=== PATIENT | male | born 1945 | race Caucasian/White ===

== ENCOUNTER 2019-01-18 11:18 | Observation (INO) ==
[2019-01-18 12:10] LABS: Bilirubin,Urine Negative (Negative); Blood,Urine Trace (Negative); Clarity,Urine Cloudy (Clear); Color,Urine Yellow (Yellow); Glucose,Urine (UA) 250 mg/dL (Normal); Ketones,Urine Negative (Negative); Leukocyte Esterase,Urine Large (Negative); Nitrite,Urine Negative (Negative); PH,Urine 5.5 pH Units (5.0-8.0); Protein,Urine 30 mg/dL (Neg-Trace); Specific Gravity,Urine 1.024 (1.010-1.025); Urobilinogen,Urine Normal (Normal)
[2019-01-18 12:12] LABS: Bacteria,Urine Many per hpf (None-Few); RBC,Urine 0-3 per hpf (0-3); Squamous Epithelial Cell,Urine Few per lpf (None-Few); WBC,Urine TNTC per hpf (0-3)
[2019-01-18 12:17] LABS: Basophils % 0.2 %; Eosinophils % 0.1 %; Hematocrit 46.4 % (37.5-50.1); Hemoglobin 15.3 g/dL (12.9-16.9); Immature Granulocytes % 0.3 % (0-4); Lymphocytes # 1.3 K/mcL (0.6-4.6); Lymphocytes % 10.4 %; Mean Corpuscular Hemoglobin 30.7 pg (28.0-33.3); Mean Corpuscular Volume 93.2 fL (83.0-100.0); Mean Platelet Volume 10.8 fL (9.4-12.4); Monocytes # 0.5 K/mcL (0.0-1.3); Monocytes % 3.7 %; Neutrophils # 10.8 K/mcL (1.6-8.9); Platelet Count 198 K/mcL (140-400); Red Blood Count 4.98 M/mcL (4.19-5.50); Red Cell Distribution Width 13.5 % (11.5-14.5); Segmented Neutrophils % 85.3 %; White Blood Count 12.6 K/mcL (4.3-11.1)
[2019-01-18 12:24] LABS: INR 1.1; Prothrombin Time 12.1 Seconds (9.4-12.1)
[2019-01-18 12:27] LABS: Activated Partial Thrombo Time 28.5 Seconds (26.0-36.0)
[2019-01-18 12:33] LABS: Alanine Aminotransferase 9 Units/L (7-52); Albumin 3.9 g/dL (3.5-5.7); Albumin/Globulin Ratio 1.3 (1.1-2.2); Alkaline Phosphatase 53 Units/L (34-104); Aspartate Amino Transferase 7 Units/L (13-39); BUN/Creatinine Ratio 18 (6-26); Bilirubin,Direct 0.2 mg/dL (0.0-0.2); Bilirubin,Indirect 0.5 mg/dL (0.0-1.2); Bilirubin,Total 0.7 mg/dL (0.3-1.0); Blood Urea Nitrogen 27 mg/dL (8-23); Calcium 9.5 mg/dL (8.6-10.3); Carbon Dioxide 23 mEq/L (23-29); Chloride 103 mEq/L (98-107); Glucose 225 mg/dL (70-105); Lipase 21 Units/L (11-82); Osmolality,Calculated 290 (280-300); Potassium 4.3 mEq/L (3.5-5.1); Sodium 134 mEq/L (136-145); Total Protein 6.9 g/dL (6.4-8.9); Troponin I < 0.03 ng/mL (< 0.04); eGFR For African Americans 57 (> 60); eGFR For Non-African Americans 47 (> 60)
[2019-01-18] MEDS ORDERED: *HR* HYDROmorphone (PF) 1 MG/ML SYRINGE IVP ONE (13:47)
[2019-01-18] MEDS ORDERED: Ondansetron 4 MG/2 ML VIAL IVP STA (13:47)
[2019-01-18] MEDS ORDERED: 0.9 % Sodium Chloride 1,000 ML IVC ONE (13:48)
[2019-01-18] MEDS ORDERED: Piperacillin/Tazobactam 3.375 GM in 0.9 % Sodium Chloride Mini Bag 100 ML IVPB ONE (15:36)
[2019-01-18] MEDS ORDERED: Ondansetron ODT 4 MG TAB.RAPDIS SL PRN (16:23)
[2019-01-18] MEDS ORDERED: Naloxone 0.4 MG/ML INJ IVP PRN (16:23)
[2019-01-18] MEDS ORDERED: *HR* FentaNYL (PF) 100 MCG/2 ML VIAL IVP PRN (16:25)
[2019-01-18] MEDS ORDERED: 0.9 % Sodium Chloride 1,000 ML IVC SCH (16:30)
[2019-01-18] MEDS ORDERED: *HR* OxyCODONE Immed Rel 5 MG TABLET PO PRN (17:15)
[2019-01-18] MEDS ORDERED: *HR* Promethazine 25 MG/ML VIAL IVP PRN (17:15)
[2019-01-18] MEDS ORDERED: Albuterol 2.5 MG/3 ML NEBULIZER IH ONE (17:15)
[2019-01-18] MEDS ORDERED: Ondansetron 4 MG/2 ML VIAL IVP ONE (17:15)
[2019-01-18] MEDS ORDERED: *HR* HYDROmorphone (PF) 1 MG/ML SYRINGE IVP PRN (17:15)
[2019-01-18] MEDS ORDERED: *HR* Propofol 200 MG/20 ML VIAL IVP ONE (17:23)
[2019-01-18] MEDS ORDERED: *HR* HYDROMORPHONE 2 MG/ML VIAL ONE (17:23)
[2019-01-18] MEDS ORDERED: Ipratropium/Albuterol Neb 3 ML ONE (17:25)
[2019-01-18] MEDS ORDERED: Ipratropium/Albuterol Neb 3 ML IH ONE (17:27)
[2019-01-18] MEDS ORDERED: *HR* Succinylcholine 200 MG/10 ML VIAL IVP ONE (17:35)
[2019-01-18] MEDS ORDERED: *HR* Rocuronium Bromide 50 MG/5 ML VIAL ONE ×2 (17:35→19:31)
[2019-01-18] MEDS ORDERED: Dexamethasone 4 MG/ML VIAL ONE (17:35)
[2019-01-18] MEDS ORDERED: Lidocaine -MPF 2% 2 ML VIAL ONE (17:35)
[2019-01-18] MEDS ORDERED: Isovue-300 50ML VIAL ONE (18:13)
[2019-01-18] MEDS ORDERED: *HR* PHENYLEPHRINE 1,000 MCG/10 ML SYRINGE IVP ONE ×2 (18:47→19:29)
[2019-01-18] MEDS ORDERED: Acetaminophen IV 1,000 MG/100 ML INFUS..BTL ONE (19:08)
[2019-01-18] MEDS ORDERED: *HR* Phenylephrine 10 MG/ML VIAL ONE (20:01)
[2019-01-18] MEDS ORDERED: CefOXitin 1,000 MG VIAL ONE (20:12)
[2019-01-18] MEDS ORDERED: Ondansetron 4 MG/2 ML VIAL ONE (20:53)
[2019-01-18] MEDS ORDERED: *HR* Metoprolol 5 MG/5 ML VIAL IVP PRN (22:16)
[2019-01-18] MEDS ORDERED: Insulin DETEMIR 100 UNIT/ML X5UNITS SQ SCH (22:16)
[2019-01-18] MEDS ORDERED: Morphine PCA 30 MG/ 30 ML 30 ML PCA.VIAL IVC PRN (22:16)
[2019-01-18 22:59] LABS: Basophils % 0.3 %; Hematocrit 45.1 % (37.5-50.1); Hemoglobin 14.3 g/dL (12.9-16.9); Immature Granulocytes % 0.6 % (0-4); Lymphocytes # 0.8 K/mcL (0.6-4.6); Mean Corpuscular HGB Conc 31.7 g/dL (31.6-35.5); Mean Corpuscular Hemoglobin 30.3 pg (28.0-33.3); Mean Corpuscular Volume 95.6 fL (83.0-100.0); Mean Platelet Volume 10.7 fL (9.4-12.4); Monocytes % 5.5 %; Platelet Count 177 K/mcL (140-400); Red Blood Count 4.72 M/mcL (4.19-5.50); Red Cell Distribution Width 13.8 % (11.5-14.5); Segmented Neutrophils % 86.6 %; White Blood Count 11.7 K/mcL (4.3-11.1)
[2019-01-18 23:05] LABS: Monocytes # 0.6 K/mcL (0.0-1.3); Neutrophils # 10.1 K/mcL (1.6-8.9)
[2019-01-18 23:18] LABS: Magnesium 1.5 mg/dL (1.6-2.6); Phosphorous 4.1 mg/dL (2.7-4.5)
[2019-01-18 23:24] LABS: Platelet Estimate Normal (Normal)
[2019-01-18] MEDS: 0.9 % Sodium Chloride 1,000 ML IVC SCH (23:30)
[2019-01-18] MEDS: *HR* FentaNYL (PF) 100 MCG/2 ML VIAL IVP PRN (23:30)
[2019-01-18] MEDS: Insulin DETEMIR 100 UNIT/ML X5UNITS SQ SCH (23:31)
[2019-01-18] MEDS: Piperacillin/Tazobactam 3.375 GM in 0.9 % Sodium Chloride Mini Bag 100 ML IVPB SCH (23:32)
[2019-01-19] MEDS: Insulin LISPRO 300 UNITS/3 ML VIAL SQ SCH ×6 (00:08→17:50)
[2019-01-19 00:37] LABS: Albumin 3.7 g/dL (3.5-5.7); Albumin/Globulin Ratio 1.4 (1.1-2.2); Bilirubin,Total 1.2 mg/dL (0.3-1.0); Calcium 8.8 mg/dL (8.6-10.3); Globulin 2.6 g/dL (2.4-3.5); Potassium 5.6 mEq/L (3.5-5.1); Total Protein 6.3 g/dL (6.4-8.9)
[2019-01-19] MEDS: *HR* FentaNYL (PF) 100 MCG/2 ML VIAL IVP PRN ×7 (03:26→22:45)
[2019-01-19 04:29] LABS: Basophils % 0.1 %; Hematocrit 42.7 % (37.5-50.1); Hemoglobin 13.3 g/dL (12.9-16.9); Immature Granulocytes % 0.4 % (0-4); Lymphocytes # 0.8 K/mcL (0.6-4.6); Lymphocytes % 6.9 %; Mean Corpuscular HGB Conc 31.1 g/dL (31.6-35.5); Mean Corpuscular Hemoglobin 30.3 pg (28.0-33.3); Mean Corpuscular Volume 97.3 fL (83.0-100.0); Monocytes # 0.6 K/mcL (0.0-1.3); Monocytes % 4.9 %; Platelet Count 164 K/mcL (140-400); Red Blood Count 4.39 M/mcL (4.19-5.50); Red Cell Distribution Width 13.9 % (11.5-14.5); Segmented Neutrophils % 87.7 %; White Blood Count 11.4 K/mcL (4.3-11.1)
[2019-01-19] MEDS ORDERED: D5% in Water 1,000 ML IVC PRN (04:41)
[2019-01-19] MEDS ORDERED: *HR* Dextrose 50 % in Water (Syg) 50 ML SYRINGE IVP PRN (04:41)
[2019-01-19] MEDS ORDERED: Dextrose Gel 15 GM/37.5 ML TUBE PO PRN ×2 (04:41)
[2019-01-19 04:45] LABS: Albumin 3.6 g/dL (3.5-5.7); Albumin/Globulin Ratio 1.3 (1.1-2.2); Bilirubin,Total 0.9 mg/dL (0.3-1.0); Calcium 8.8 mg/dL (8.6-10.3); Globulin 2.7 g/dL (2.4-3.5); Potassium 5.4 mEq/L (3.5-5.1); Total Protein 6.3 g/dL (6.4-8.9)
[2019-01-19 04:58] LABS: Platelet Estimate Normal (Normal)
[2019-01-19 05:04] LABS: Phosphorous 4.4 mg/dL (2.7-4.5)
[2019-01-19] MEDS: Piperacillin/Tazobactam 3.375 GM in 0.9 % Sodium Chloride Mini Bag 100 ML IVPB SCH ×2 (08:01→16:04)
[2019-01-19] MEDS: 0.9 % Sodium Chloride 1,000 ML IVC SCH ×3 (08:13→18:05)
[2019-01-19] MEDS: Lisinopril 20 MG TABLET PO SCH ×2 (08:13→20:02)
[2019-01-19] MEDS: Ondansetron ODT 4 MG TAB.RAPDIS SL PRN ×2 (10:03→19:23)
[2019-01-19 15:05] LABS: Albumin 3.5 g/dL (3.5-5.7); Albumin/Globulin Ratio 1.2 (1.1-2.2); Bilirubin,Total 0.5 mg/dL (0.3-1.0); Calcium 8.7 mg/dL (8.6-10.3); Globulin 2.9 g/dL (2.4-3.5); Total Protein 6.4 g/dL (6.4-8.9)
[2019-01-19] MEDS ORDERED: Ondansetron 4 MG/2 ML VIAL IVP ONE (16:07)
[2019-01-19] MEDS ORDERED: Insulin LISPRO 300 UNITS/3 ML VIAL SQ SCH (16:30)
[2019-01-19] MEDS ORDERED: *HR* Heparin 5,000 UNIT/ML VIAL SQ SCH (18:00)
[2019-01-19 19:18] VITALS: BP 150/71
[2019-01-19] MEDS: Insulin DETEMIR 100 UNIT/ML X5UNITS SQ SCH (20:02)
== END 2019-01-19 22:55 | disposition other institution (70) ==
LOC: 3ANU 11:18 → EMEROOARM 11:18 → 3ANU 17:07
PROVIDERS: ADMIT Surgery; ATTEND Surgery

== ENCOUNTER 2020-11-14 15:32 | Inpatient (IN) ==
[2020-11-14] MEDS ORDERED: 0.9 % Sodium Chloride 1,000 ML IVC ONE ×2 (17:58→19:23)
[2020-11-14 18:35] LABS: Basophils % 0.3 %; Eosinophils # 0.2 K/mcL (0.0-0.6); Eosinophils % 1.7 %; Hematocrit 44.8 % (37.5-50.1); Hemoglobin 13.7 g/dL (12.9-16.9); Immature Granulocytes % 0.4 % (0-4); Lymphocytes # 2.2 K/mcL (0.6-4.6); Lymphocytes % 23.7 %; Mean Corpuscular HGB Conc 30.6 g/dL (31.6-35.5); Mean Corpuscular Hemoglobin 30.4 pg (28.0-33.3); Mean Corpuscular Volume 99.6 fL (83.0-100.0); Mean Platelet Volume 11.4 fL (9.4-12.4); Monocytes # 0.9 K/mcL (0.0-1.3); Neutrophils # 5.9 K/mcL (1.6-8.9); Platelet Count 241 K/mcL (140-400); Red Cell Distribution Width 14.2 % (11.5-14.5); Segmented Neutrophils % 63.9 %; White Blood Count 9.3 K/mcL (4.3-11.1)
[2020-11-14 18:51] LABS: Alanine Aminotransferase 14 Units/L (7-52); Albumin 3.7 g/dL (3.5-5.7); Albumin/Globulin Ratio 1.1 (1.1-2.2); Alkaline Phosphatase 82 Units/L (34-104); Aspartate Amino Transferase 11 Units/L (13-39); BUN/Creatinine Ratio 20 (6-26); Bilirubin,Direct 0.1 mg/dL (0.0-0.2); Bilirubin,Indirect 0.2 mg/dL (0.0-1.0); Bilirubin,Total 0.3 mg/dL (0.3-1.0); Blood Urea Nitrogen 63 mg/dL (8-23); Calcium 8.8 mg/dL (8.6-10.3); Carbon Dioxide 11 mEq/L (23-29); Chloride 115 mEq/L (98-107); Globulin 3.4 g/dL (2.4-3.5); Glucose 127 mg/dL (70-105); Lipase 33 Units/L (11-82); Osmolality,Calculated 304 (280-300); Potassium 4.1 mEq/L (3.5-5.1); Sodium 137 mEq/L (136-145); Total Protein 7.1 g/dL (6.4-8.9); eGFR For African Americans 23 (> 60); eGFR For Non-African Americans 19 (> 60)
[2020-11-14 18:52] LABS: Troponin I < 0.03 ng/mL (< 0.04)
[2020-11-14] MEDS ORDERED: Famotidine 20 MG/2 ML VIAL IVP ONE (19:23)
[2020-11-14 20:43] LABS: Adenovirus F 40/41 PCR Not detected (Not detect); Astrovirus PCR Not detected (Not detect); C.difficile Toxin A/B Gene PCR Not detected (Not detect); Campylobacter by PCR Not detected (Not detect); Cryptosporidium by PCR Not detected (Not detect); Cyclospora cayetanensis PCR Not detected (Not detect); E. coli O157 by PCR Not detected (Not detect); Entamoeba histolytica PCR Not detected (Not detect); Enteroaggregative E.coli(EAEC) Not detected (Not detect); Enteropathogenic E.coli(EPEC) Not detected (Not detect); Enterotoxigenic E.coli (ETEC) Not detected (Not detect); Giardia lamblia PCR Not detected (Not detect); Norovirus GI/GII PCR Not detected (Not detect); Plesiomonas shigelloides PCR Not detected (Not detect); Rotavirus A PCR Not detected (Not detect); Salmonella PCR Not detected (Not detect); Sapovirus PCR Not detected (Not detect); Shig/EnteroinvasiveE coli EIEC Not detected (Not detect); Shigalike tox-prod E coli STEC Not detected (Not detect); Vibrio PCR Not detected (Not detect); Vibrio cholerae PCR Not detected (Not detect); Yersinia enterocolitica PCR Not detected (Not detect)
[2020-11-14] MEDS ORDERED: Piperacillin/Tazobactam 3.375 GM in Water for inj. (sterile) 20 ML IVP ONE (20:55)
[2020-11-14 22:23] LABS: Bacteria,Urine Few per hpf (None-Few); Bilirubin,Urine Negative (Negative); Blood,Urine Small (Negative); Clarity,Urine Turbid (Clear); Color,Urine Light-Yellow (Yellow); Glucose,Urine (UA) 200 mg/dL (Normal); Ketones,Urine Negative (Negative); Leukocyte Esterase,Urine Large (Negative); Mucus,Urine Few per lpf (None-Few); Nitrite,Urine Positive (Negative); Protein,Urine 30 mg/dL (Neg-Trace); RBC,Urine 0-3 per hpf (0-3); Specific Gravity,Urine 1.009 (1.010-1.025); Urobilinogen,Urine Normal (Normal); WBC,Urine 50-100 per hpf (0-3)
[2020-11-15] MEDS ORDERED: Naloxone 0.4 MG/ML INJ IVP PRN (00:30)
[2020-11-15] MEDS ORDERED: Acetaminophen 325 MG TABLET PO PRN (00:36)
[2020-11-15] MEDS ORDERED: Ondansetron 4 MG/2 ML VIAL IVP PRN (00:36)
[2020-11-15] MEDS ORDERED: Melatonin 3 MG TABLET PO PRN (00:36)
[2020-11-15] MEDS ORDERED: 0.9 % Sodium Chloride 1,000 ML IVC ONE (06:52)
[2020-11-15] MEDS ORDERED: Dextrose Gel 15 GM/37.5 ML TUBE PO PRN ×2 (07:04)
[2020-11-15] MEDS ORDERED: *HR* Dextrose 50 % in Water (Vial) 50 ML VIAL IVP PRN (07:04)
[2020-11-15] MEDS ORDERED: D5% in Water 1,000 ML IVC PRN (07:04)
[2020-11-15 07:26] LABS: Basophils % 0.4 %; Eosinophils # 0.2 K/mcL (0.0-0.6); Eosinophils % 2.2 %; Hematocrit 42.1 % (37.5-50.1); Hemoglobin 12.8 g/dL (12.9-16.9); Immature Granulocytes % 0.3 % (0-4); Lymphocytes # 1.9 K/mcL (0.6-4.6); Lymphocytes % 20.3 %; Mean Corpuscular HGB Conc 30.4 g/dL (31.6-35.5); Mean Corpuscular Hemoglobin 29.9 pg (28.0-33.3); Mean Corpuscular Volume 98.4 fL (83.0-100.0); Mean Platelet Volume 10.9 fL (9.4-12.4); Monocytes % 10.6 %; Neutrophils # 6.1 K/mcL (1.6-8.9); Platelet Count 232 K/mcL (140-400); Red Blood Count 4.28 M/mcL (4.19-5.50); Red Cell Distribution Width 14.3 % (11.5-14.5); Segmented Neutrophils % 66.2 %; White Blood Count 9.2 K/mcL (4.3-11.1)
[2020-11-15 07:42] LABS: Albumin 3.4 g/dL (3.5-5.7); Albumin/Globulin Ratio 1.1 (1.1-2.2); Bilirubin,Total 0.3 mg/dL (0.3-1.0); Calcium 8.3 mg/dL (8.6-10.3); Globulin 3.1 g/dL (2.4-3.5); Magnesium 1.7 mg/dL (1.6-2.6); Phosphorous 3.1 mg/dL (2.7-4.5); Total Protein 6.5 g/dL (6.4-8.9)
[2020-11-15] MEDS: Piperacillin/Tazobactam 3.375 GM in 0.9 % Sodium Chloride Mini Bag 100 ML IVPB SCH ×2 (07:48→16:34)
[2020-11-15] MEDS: Aspirin Enteric Coated 81 MG Tablet PO SCH (11:15)
[2020-11-15] MEDS ORDERED: Insulin LISPRO 300 UNITS/3 ML VIAL SUBQ SCH (12:00)
[2020-11-15] MEDS: Insulin LISPRO 300 UNITS/3 ML VIAL SUBQ SCH ×3 (12:28→21:17)
[2020-11-15] MEDS: Sodium Bicarbonate 150 MEQ in 0.45 % Sodium Chloride 1,000 ML IVC SCH (13:25)
[2020-11-16] MEDS: Sodium Bicarbonate 150 MEQ in 0.45 % Sodium Chloride 1,000 ML IVC SCH (01:41)
[2020-11-16] MEDS: Piperacillin/Tazobactam 3.375 GM in 0.9 % Sodium Chloride Mini Bag 100 ML IVPB SCH ×3 (04:35→22:07)
[2020-11-16 06:06] LABS: Basophils # 0.1 K/mcL (0.0-0.2); Basophils % 0.6 %; Eosinophils # 0.2 K/mcL (0.0-0.6); Eosinophils % 2.4 %; Hematocrit 41.5 % (37.5-50.1); Hemoglobin 12.9 g/dL (12.9-16.9); Immature Granulocytes % 0.7 % (0-4); Lymphocytes # 2.3 K/mcL (0.6-4.6); Mean Corpuscular HGB Conc 31.1 g/dL (31.6-35.5); Mean Corpuscular Hemoglobin 29.9 pg (28.0-33.3); Mean Corpuscular Volume 96.3 fL (83.0-100.0); Mean Platelet Volume 10.6 fL (9.4-12.4); Monocytes % 11.1 %; Neutrophils # 5.4 K/mcL (1.6-8.9); Platelet Count 232 K/mcL (140-400); Red Blood Count 4.31 M/mcL (4.19-5.50); Segmented Neutrophils % 60.2 %
[2020-11-16 06:35] LABS: Calcium 8.6 mg/dL (8.6-10.3); Magnesium 1.6 mg/dL (1.6-2.6); Phosphorous 2.1 mg/dL (2.7-4.5); Potassium 3.8 mEq/L (3.5-5.1)
[2020-11-16 06:41] LABS: Platelet Estimate Normal (Normal); Reactive Lymphocytes Present (Not Present)
[2020-11-16] MEDS ORDERED: Ringers Solution, Lactated 1,000 ML IVC SCH (07:30)
[2020-11-16] MEDS: Insulin LISPRO 300 UNITS/3 ML VIAL SUBQ SCH ×5 (09:01→23:46)
[2020-11-16] MEDS: Cholecalciferol (D-3) 1,000 UNIT (25MCG) TABLET PO SCH (09:01)
[2020-11-16] MEDS: amLODIPine 5 MG TABLET PO SCH (09:02)
[2020-11-16] MEDS: Aspirin Enteric Coated 81 MG Tablet PO SCH (09:02)
[2020-11-16] MEDS: *HR* Heparin 5,000 UNIT/ML VIAL SQ SCH (17:02)
[2020-11-16] MEDS: Insulin DETEMIR 100 UNIT/ML X5UNITS SUBQ SCH (22:07)
[2020-11-17] MEDS: Piperacillin/Tazobactam 3.375 GM in 0.9 % Sodium Chloride Mini Bag 100 ML IVPB SCH ×2 (03:55→12:27)
[2020-11-17] MEDS: *HR* Heparin 5,000 UNIT/ML VIAL SQ SCH ×2 (05:32→18:20)
[2020-11-17 05:52] LABS: Calcium 8.6 mg/dL (8.6-10.3); Magnesium 1.6 mg/dL (1.6-2.6); Phosphorous 2.7 mg/dL (2.7-4.5); Potassium 3.7 mEq/L (3.5-5.1)
[2020-11-17] MEDS: amLODIPine 5 MG TABLET PO SCH (09:10)
[2020-11-17] MEDS: Cholecalciferol (D-3) 1,000 UNIT (25MCG) TABLET PO SCH (09:10)
[2020-11-17] MEDS: Aspirin Enteric Coated 81 MG Tablet PO SCH (09:10)
[2020-11-17] MEDS: Insulin DETEMIR 100 UNIT/ML X5UNITS SUBQ SCH (09:18)
[2020-11-17] MEDS: Insulin LISPRO 300 UNITS/3 ML VIAL SUBQ SCH ×6 (09:19→18:21)
[2020-11-17 11:13] VITALS: BP 148/74
[2020-11-17] MEDS ORDERED: metroNIDAZOLE 500 MG TABLET PO SCH (15:00)
== END 2020-11-17 18:35 | disposition home health service (06) | DRG 392 ==
LOC: 3ANU 15:32 → EMEROOARM 15:32 → 3ANU 22:27 → SUATTDRO 11-16 15:34
PROVIDERS: ADMIT Family Medicine; ATTEND General Practice